=== PATIENT | female | born 1970 | race Caucasian/White ===

== ENCOUNTER 2016-10-26 10:06 | Outpatient (CLI) | payer OTHER ==
--- NOTE | 2016-10-30 15:44 | Mammography Report ---
DIGITAL SCREENING MAMMOGRAM: 10/26/2016 CLINICAL INDICATION: A 46-year-old for screening. COMPARISON: 07/2015, 02/2013, 07/2011, 05/2010, 10/2009, 03/2009 TECHNIQUE: Routine CC and MLO projections were obtained of the breasts. FINDINGS: The breasts again demonstrate fatty replacement bilaterally. No suspicious masses, cluste red microcalcifications, or regions of architectural distortion are identified. A few punctate, typi nikole benign calcifications are present. IMPRESSION: BENIGN FINDINGS. RECOMMENDATION: Routine annual screening unless otherwise clinically indicated. BIRADS CATEGORY 2 - BENIGN FINDINGS. STANDARD QUALIFYING STATEMENTS 1. This examination was reviewed with the aid of Computer-Aided Detection (CAD). 2. A negative or benign imaging report should not delay biopsy if clinically suspicious findings are present. Consider surgical consultation if warranted. More than 5% of cancers are not identified by i maging. 3. Dense breasts may obscure an underlying neoplasm. JOB #: [id number] EXT JOB #:[id number]
== END 2016-10-26 10:07 | disposition home or self-care (01) ==
LOC: DI.N 10:06
PROVIDERS: ATTEND Physician Assistant Medical
DX: Z12.31 Encounter for screening mammogram for malignant neoplasm of breast (principal)
CPT/HCPCS: 77067

== ENCOUNTER 2018-11-05 13:05 | Outpatient (CLI) | payer BC ==
[2018-11-05 18:42] LABS: BASOPHILS # (AUTO) 0.1 10^3/uL (0.0-0.1); BASOPHILS % (AUTO) 0.7 %; EOSINOPHILS # (AUTO) 0.1 10^3/uL (0.0-0.7); EOSINOPHILS % (AUTO) 1.3 %; LYMPHOCYTES # (AUTO) 2.2 10^3/uL (1.5-3.5); LYMPHOCYTES % (AUTO) 23.7 %; MEAN CORPUSCULAR HEMOGLOBIN 28.9 pg (27.0-31.0); MEAN CORPUSCULAR HGB CONC 30.9 g/dL (32.0-36.0); MEAN CORPUSCULAR VOLUME 93.6 fL (81.0-99.0); MEAN PLATELET VOLUME 11.1 fL (7.9-10.8); MONOCYTES # (AUTO) 0.6 10^3/uL (0.0-1.0); MONOCYTES % (AUTO) 6.2 %; NEUTROPHILS # (AUTO) 6.2 10^3/uL (1.5-6.6); NEUTROPHILS % (AUTO) 67.7 %; PLT - PLATELET COUNT 366 10^3/uL (130-450); RED BLOOD COUNT 4.84 10^6/uL (4.20-5.40); RED CELL DISTRIBUTION WIDTH 14.6 % (12.0-15.0); WHITE BLOOD COUNT 9.2 x10^3/uL (4.8-10.8)
[2018-11-05 19:07] LABS: ALBUMIN 4.2 g/dL (3.2-5.5); ALBUMIN/GLOBULIN RATIO 1.1 (1.0-2.2); ALKALINE PHOSPHATASE 79 IU/L (42-121); ALT ALANINE AMINOTRANSFERASE 17 IU/L (10-60); AST ASPARTATE AMINOTRANSFERASE 21 IU/L (10-42); BILIRUBIN,TOTAL 0.5 mg/dL (0.2-1.0); BUN - BLOOD UREA NITROGEN 17 mg/dL (6-20); CALCIUM 9.3 mg/dL (8.5-10.3); CARBON DIOXIDE - CO2 24 mmol/L (21-32); CHLORIDE 104 mmol/L (101-111); CHOLESTEROL 217 mg/dL; CREATININE 0.7 mg/dL (0.4-1.0); GFR - MDRD 89 (>89); GLUCOSE 89 mg/dL (70-100); HDL CHOLESTEROL 54 mg/dL; LDL CHOLESTEROL,CALCULATED 142 mg/dL; LDL/HDL RATIO 2.6 (<4.4); SODIUM 139 mmol/L (135-145); TOTAL PROTEIN 7.9 g/dL (6.7-8.2); VLDL CHOLESTEROL 21 mg/dL
== END 2018-11-05 13:06 | disposition home or self-care (01) ==
LOC: LAB.WCP 13:05
PROVIDERS: ATTEND Physician Assistant Medical
DX: E66.01 Morbid (severe) obesity due to excess calories (principal); E55.9 Vitamin D deficiency, unspecified; J45.909 Unspecified asthma, uncomplicated; I10 Essential (primary) hypertension
CPT/HCPCS: 36415; 80053; 80061; 83721; 84443; 85025

== ENCOUNTER 2020-12-07 09:55 | Day surgery (SDC) | payer OTHER ==
[2020-12-07] MEDS ORDERED: LACTATED RINGERS 1,000 ML IV ONE ×2 (10:28→12:35)
--- NOTE | 2020-12-07 11:17 | ANESTHESIA ---
Pre-Anesthesia VS, & Labs - Diagnosis screening - Procedure colonoscopy Vital Signs: Temp Pulse Resp BP Pulse Ox 36.5 C 96 18 150/99 H 97 12/07/20 10:18 12/07/20 10:18 12/07/20 10:18 12/07/20 10:18 12/07/20 10:18 Height: 5 ft 3 in Weight (kg): 136 kg Body Mass Index: 53.1 BMI Classification: Morbidly Obese - NPO >8 hours - Is Patient ?: No, Waiver signed Home Medications and Allergies Home Medications: Ambulatory Orders Albuterol Sulf [Ventolin Hfa Inhaler] 1 - 2 puffs INH Q4HR PRN 12/01/20 Beclomethasone Dipropionate [Qvar Redihaler (40 mcg)] 1 inh IH BID PRN 12/01/20 Lisinopril/Hydrochlorothiazide [Zestoretic 20-25 mg Tablet] 0.5 tab PO DAILY 12/01/20 Loratadine/Pseudoephedrine [Claritin-D 24 Hour Tablet] 1 each PO DAILY 12/06/20 Albuterol Sulf [Ventolin Hfa Inhaler] 1 - 2 puffs INH Q4HR PRN 12/01/20 Beclomethasone Dipropionate [Qvar Redihaler (40 mcg)] 1 inh IH BID PRN 12/01/20 Lisinopril/Hydrochlorothiazide [Zestoretic 20-25 mg Tablet] 0.5 tab PO DAILY 12/01/20 Loratadine/Pseudoephedrine [Claritin-D 24 Hour Tablet] 1 each PO DAILY 12/06/20 Allergies/Adverse Reactions: Allergies Allergy/AdvReac Type Severity Reaction Status Date / Time Sulfa (Sulfonamide Allergy Rash Verified 12/01/20 07:59 Antibiotics) Anes History & Medical History - Anesthetic History Anesthesia Complications: reports: No previous complications - Medical History Cardiovascular: reports: Hypertension Pulmonary: reports: Asthma Gastrointestinal: reports: None Urinary: reports: None Musculoskeletal: reports: Chronic back pain Endocrine/Autoimmune: reports: None Skin: reports: Eczema Smoking Status: Never smoker History of Cancer?: No - Surgical History Gynecologic: reports: section Exam General: Alert, Oriented x3 Dental: WNL Mouth Opening: Greater than 4 Fingerbreadths Mallampati classification: II Thyromental Distance: greater than 6 cm Respiratory: Lungs clear Cardiovascular: Regular rate Plan Anesthesia Type: Total IV Consent for Procedure(s) Verified and Reviewed: Yes Code Status: Attempt Resuscitation ASA classification: 3-Severe systemic disease Is this case an emergency?: No
[2020-12-07] MEDS ORDERED: KETAMINE 500 MG/10 ML VIAL ONE (12:21)
[2020-12-07] MEDS ORDERED: PROPOFOL 200 MG/20 ML VIAL IVP ONE (12:25)
[2020-12-07 13:15] VITALS: BP 122/70
--- NOTE | 2020-12-07 15:26 | ANESTHESIA POST OP EVALUATION ---
Anesthesia Post Eval - Post Anesthesia Eval Vitals: Last Vital Signs Temp 36.5 C 12/07/20 13:05 Pulse 71 12/07/20 13:05 Resp 18 12/07/20 13:05 BP 122/70 12/07/20 13:05 Pulse Ox 99 12/07/20 13:05 CV Function Including HR & BP: Stable Pain Control: Satisfactory Nausea & Vomiting: Negative Mental Status: Baseline Respiratory Status: Airway Patent Hydration Status: Satisfactory Anesthesia Complications: None
== END 2020-12-07 09:56 | disposition home or self-care (01) ==
LOC: SDS 09:55
PROVIDERS: ATTEND Surgery
PROC: 0DBN8ZZ Excision of Sigmoid Colon, Via Natural or Artificial Opening Endoscopic (ICD-10-PCS; 2020-12-07)
PROC: 0DBP8ZZ Excision of Rectum, Via Natural or Artificial Opening Endoscopic (ICD-10-PCS; principal; 2020-12-07 11:45)
DX: Z12.11 Encounter for screening for malignant neoplasm of colon (principal); K63.5 Polyp of colon; K62.1 Rectal polyp; K57.30 Diverticulosis of large intestine without perforation or abscess without bleeding; K64.8 Other hemorrhoids; K64.4 Residual hemorrhoidal skin tags; I10 Essential (primary) hypertension; J45.909 Unspecified asthma, uncomplicated; E66.01 Morbid (severe) obesity due to excess calories; Z68.43 Body mass index [BMI] 50.0-59.9, adult
CPT/HCPCS: 45380; J7120